=== PATIENT | female | born 2000 | race Caucasian/White ===

== ENCOUNTER 2024-06-24 20:04 | Emergency (ER) | payer MEDICAID, SELFPAY ==
[2024-06-24] VITALS (16 sets, daily range): BP systolic 94–132; BP diastolic 54–90; PULSE 53–93; RESP 10–16; TEMP 36.7–36.9; O2SAT 94–100; BMI 33.9
--- NOTE | 2024-06-24 21:11 | EKG12_ITS ---
Test Reason : DYSRHYTHMIA Blood Pressure : */* mmHG Vent. Rate : 71 BPM Atrial Rate : 71 BPM P-R Int : 186 ms QRS Dur : 88 ms QT Int : 400 ms P-R-T Axes : -14 58 8 degrees QTcB Int : 434 ms Normal sinus rhythm with sinus arrhythmia Normal ECG Confirmed by BOUCHRA LINDQUIST, MIGNON ([id number]), editor trade journal DAMIR BRIONES ([id number]) on 06/27/2024 11:02:46 AM Referred By: Confirmed By: MIGNON SHOOK MD
--- NOTE | 2024-06-24 21:11 | CT_ITS ---
PROCEDURE: CT images of the brain were acquired without intravenous contrast. Multiplanar reformats were acquired. COMPARISON: None available. FINDINGS: * ACUTE: No acute infarct or hemorrhage. No mass effect or herniation. * BRAIN PARENCHYMA: Signal intensities are within normal limits for age. * VENTRICLES/EXTRA-AXIAL SPACES: No hydrocephalus or extra-axial fluid collections. * EXTRACRANIAL STRUCTURES: Visualized osseous structures are normal. Soft tissues are normal. CT/STROKE Brain/Head without Cont IMPRESSION: No acute intracranial findings. IMPRESSION: One or more dose reduction techniques were used (e.g., Automated exposure contr ol, adjustment of the mA and/or kV according to patient size, use of iterative reconstruction technique). Reading Location: [facility]
--- NOTE | 2024-06-24 21:12 | CT_ITS ---
PROCEDURE: STROKE CTA HEAD AND NECK W/CON REASON FOR EXAM: NEURO DEFICIT, ACUTE, STROKE SUSPECTED TECHNIQUE: CTA HEAD AND NECK WITH IV CONTRAST AND 3-D CONTRAST: COMPARISON: None. FINDINGS: AORTIC ARCH The aortic arch is normal. There is a common trunk of the innominate and left common carotid arteries. The origins of the arch branch vessels are patent. EXTRACRANIAL CAROTIDS The common carotid, internal carotid and external carotid segments are widely patent throughout the neck. RIGHT ICA Maximum stenosis (NASCET): 0 % LEFT ICA Maximum stenosis (NASCET): 0 % SKULL BASE The petrous, cavernous and supraclinoid segments of the distal internal carotid arteries are patent with normal configuration. The ophthalmic arteries, posterior communicating artery and anterior choroidal artery origins are normal. INTRACRANIAL VASCULATURE Cerebral Arteries: The anterior, middle and posterior cerebral artery distributions are within normal limits. [place]: The A1 and P1 segments are patent. There is a patent anterior communicating artery with normal configuration. There are small patent posterior communicating arteries with normal configuration. Venous Drainage: Unremarkable. VERTEBROBASILAR SYSTEM The proximal subclavian arteries, both vertebral arteries and basilar artery are widely patent. The cerebellar arteries are within normal limits. NONVASCULAR There is no abnormal intracranial enhancement. The ventricles, cisterns, sulci and parenchymal attenuation are normal. Bone windows are unremarkable. CT/STROKE CTA Head AND Neck W/Con IMPRESSION: NORMAL CTA HEAD AND NECK One or more dose reduction techniques were used (e.g., Automated exposure contr ol, adjustment of the mA and/or kV according to patient size, use of iterative reconstruction technique). Reading Location: [facility]
[2024-06-24] MEDS: Metoclopramide 10 MG/2 ML Vial IV (21:19)
[2024-06-24 21:32] LABS: Absolute Lymphocyte Count 3.78 X10^3/uL (0.83-4.51); Absolute Neutrophil Count 6.4 X10^3/uL (2.0-7.7); Basophil# 0.11 X10^3/uL; Eosinophil# 0.32 X10^3/uL; Eosinophils% 2.8 % (0-5); Hematocrit 36.4 % (37-47); Hemoglobin 11.6 g/dL (12.0-15.0); Lymphocyte # 3.78 X10^3/ul (0.83-4.51); Lymphocyte % 33.2 % (19-41); Mean Corp Hgb Conc 31.9 g/dL (32-36); Mean Corpuscular Hgb 26.5 pg (27.0-32.0); Mean Corpuscular Volume 83.1 fL (81-99); Mean Platelet Vol. 10.6 fl (6.2-12.0); Monocyte# 0.72 X10^3/uL; Monocyte% 6.3 % (0-10); NRBC Flagged by Analyzer 0 % (0-5); Neutrophil # 6.43 X10^3/uL (2.7-7.7); Neutrophil % 56.3 % (47-70); Platelet Count 504 K/mm3 (150-450); RBC Distribution Width CV 15.3 % (11.6-14.6); RBC Distribution Width SD 46.5 fl (35.1-43.9); Red Blood Count 4.38 M/mm3 (4.2-5.4); White Blood Count 11.4 K/mm3 (4.4-11.0)
[2024-06-24 21:38] LABS: Prothrombin Time (Protime)PT. 13.4 SECONDS (11.7-14.9)
[2024-06-24 21:43] LABS: Partial Thromboplast Time 28.7 Seconds (24.1-36.2)
[2024-06-24 21:43] LABS: Bedside Glucose 95 mg/dL (74-106)
--- NOTE | 2024-06-24 21:50 | RAD_ITS ---
PROCEDURE: CHEST 1 VIEW 06/24/2024 REASON FOR EXAM: NEURO DEFICIT, ACUTE, STROKE SUSPECTED TECHNIQUE: Frontal view of the chest. COMPARISON: None. FINDINGS: The heart size is normal. The lungs are clear. The bones are unremarkable. RAD/Chest 1 View IMPRESSION: Negative Chest. Reading Location: [id number]
[2024-06-24 22:03] LABS: Troponin T High Sensitivity < 6 ng/L (<=14)
[2024-06-24 22:06] LABS: Anion Gap 16 (5-15); BUN 5 mg/dL (4-19); BUN/Creat Ratio 5.9 RATIO (10-20); Calcium,Total 9.6 mg/dL (7.6-11.0); Carbon Dioxide 20.5 mmol/L (21.0-32.0); Chloride 107 mmol/L (98-108); Creatinine, Serum 0.91 mg/dL (0.70-1.20); EST Glomerular Filtration Rate 90 (>60); Estimated Creatinine Clearance 110.88 ml/min (50-250); Glucose 95 mg/dL (70-99); Potassium 4.1 mmol/L (3.3-5.1); Sodium Level 144 mmol/L (133-145)
[2024-06-24] MEDS: LORazepam 1 MG Tablet PO (23:32)
--- NOTE | 2024-06-24 23:49 | EX.ED.DYSGE1 ---
HPI History of Present Illness Chief Complaint: Numb/Ting Narrative Narrative: Patient is a 23-year-old female past no known significant past medical history who presented to the emerged part with concern of right sided numbness and tingling. Patient states that her symptoms started around 230 this afternoon she states that this was coming and going. States that she also noted that she had some increased breathing and notes that she thought this was anxiety related. Patient noted that her grandmother had stroke starting at the age of 20 therefore she was concerned and came here for further evaluation management. PFSH PFS Medical History no medical history Allergy/AdvReac Type Severity Reaction Status Date / Time No Known Allergies Allergy Verified 06/24/24 20:06 Social History Smoking Status: Former smoker ROS ROS ED ROS Narrative Constitutional: Complains of mild headache but states that this pain is less than her typical migraine headaches, denies dizziness or lightheadedness Eyes: Denies change in vision double vision blurry vision Cardiovascular: Denies chest pain or palpitations Respiratory: Denies coughing wheezing shortness of breath Abdomen: Denies abdominal pain nausea vomit diarrhea : Denies urinary symptoms Neurological: Complains of numbness and tingling in her right arm and leg as noted above Musculoskeletal: Denies any back pain Skin: Denies rashes or lesions EXAM Physical Exam Narrative Exam Narrative: General: Patient was lying in bed rest comfortably did not appear to be in acute distress Head: Atraumatic, normocephalic Eyes: PERRL bilaterally, EOMI bilateral, no conjunctival injection noted Neck: Soft, supple, trachea midline Cardiovascular: Regular in rhythm no murmurs gallops rubs noted Respiratory: Clear to auscultation bilaterally Abdomen: Soft, nondistended, nontender to palpation Extremities: +5/5 strength noted in the bilateral upper and lower extremities, radial pulse +2/4 in the bilateral extremities, no pedal edema on exam Neurological: Patient follow commands and that she was at [facility] year is 2024. NIH 1 GCS 15. Patient notes that she has decreased sensation in her right arm and her right thigh however below her knee on the right side is normal Skin: Warm, dry, intact no rashes or lesions noted Const Vital Signs: 06/24/24 20:06 06/24/24 21:11 06/24/24 21:11 Temperature 98.1 F Temperature Source Oral Pulse Rate 82 71 Respiratory Rate 16 15 Blood Pressure 132/87 H 124/80 H Blood Pressure Mean 102 94 Pulse Ox 99 100 Oxygen Delivery Method Room Air Room Air Room Air 06/24/24 21:14 06/24/24 21:15 06/24/24 21:30 Temperature Temperature Source Pulse Rate 67 69 69 Respiratory Rate 12 15 10 L Blood Pressure 124/80 H 123/73 H Blood Pressure Mean 93 86 Pulse Ox 97 94 97 Oxygen Delivery Method 06/24/24 21:45 06/24/24 21:53 06/24/24 22:00 Temperature 98.5 F Temperature Source Oral Pulse Rate 82 68 Respiratory Rate 12 16 Blood Pressure 122/84 H 122/84 H Blood Pressure Mean 96 96 Pulse Ox 94 97 Oxygen Delivery Method Room Air 06/24/24 22:00 06/24/24 22:15 06/24/24 22:23 Temperature 98.5 F Temperature Source Oral Pulse Rate 82 53 L 62 Respiratory Rate 14 12 14 Blood Pressure 94/54 L 112/74 113/57 L Blood Pressure Mean 65 86 75 Pulse Ox 95 97 Oxygen Delivery Method Room Air 06/24/24 22:30 06/24/24 22:48 06/24/24 23:00 Temperature Temperature Source Pulse Rate 55 L 93 71 Respiratory Rate 13 15 13 Blood Pressure 113/57 L 129/78 H Blood Pressure Mean 72 95 Pulse Ox 96 97 Oxygen Delivery Method Room Air 06/24/24 23:00 06/24/24 23:15 06/24/24 23:30 Temperature Temperature Source Pulse Rate 75 78 68 Respiratory Rate 10 L 13 14 Blood Pressure 130/90 H 129/78 H Blood Pressure Mean 101 93 Pulse Ox 95 99 Oxygen Delivery Method 06/24/24 23:45 06/25/24 00:00 06/25/24 00:00 Temperature Temperature Source Pulse Rate 65 62 69 Respiratory Rate 13 15 10 L Blood Pressure 131/83 H 102/65 120/86 H Blood Pressure Mean 94 77 98 Pulse Ox 96 99 Oxygen Delivery Method Room Air 06/25/24 00:15 06/25/24 00:30 06/25/24 00:30 Temperature Temperature Source Pulse Rate 66 63 63 Respiratory Rate 13 17 17 Blood Pressure 108/67 102/65 102/65 Blood Pressure Mean 80 75 75 Pulse Ox 97 96 96 Oxygen Delivery Method MDM MDM MDM Narrative Medical decision making narrative: Patient is a 23-year-old female who presented to the emerged part with a chief complaint of right arm and leg numbness and tingling. On the differential diagnose includes Melamin to ischemic stroke, large vessel occlusion, anxiety. Once workup is obtained reviewed she will be reevaluated. Patient is not a tenecteplase candidate as her symptoms were more than 4 and half hours ago. Patient CBC reviewed showed a white blood count 11,000, hemoglobin 1.6, plate count was noted be 504. Patient INR normal at 1, PT of 13.4. Patient sodium 144, potassium of 4.1, creatinine normal at 0.9. Patient troponin was less than 6, glucose was noted be 95. Patient chest x-ray reviewed by myself by radiology showed no acute cardiopulmonary processes. Patient CT head and brain without contrast showed no acute intracranial findings and CTA head and neck showed no acute findings. Patient's EKG reviewed and showed sinus rhythm with a rate of 71 bpm. Did discuss results with on-call neurologist at [facility] Dr. Wharton who is recommending admission for MRI. I discussed this results with the patient and the plan and the patient states that she needs to go home at this point time. I advised her that we cannot fully rule out stroke without MRI and patient verbalized understanding and said she needs to go as her son is in car with significant other waiting to go. I advised her that I will have her sign out AMA as it is neurology's recommendation for admission. I advised her that without the MRI we could potentially miss a stroke that could lead to worsening symptoms even possibly . She verbalized understanding of this. After all this discussion my suspicion for stroke is low as she has right arm numbness and tingling and right proximal leg however she has no symptoms below her knee this is less likely to be stroke. Patient was advised to follow-up with primary care physician outpatient setting she was referred to neurology as well. She is encouraged return to her symptoms and concerns. She is agreeable to plan all question concerns answered bedside. Lab Data Labs: Laboratory Results - last 24 hr 06/24/24 06/24/24 20:52 21:21 WBC 11.4 H RBC 4.38 Hgb 11.6 L Hct 36.4 L MCV 83.1 MCH 26.5 L MCHC 31.9 L RDW Std Deviation 46.5 H RDW Coeff of Leyla 15.3 H Plt Count 504 H MPV 10.6 Immature Gran % (Auto) 0.400 Neut % (Auto) 56.3 Lymph % (Auto) 33.2 [place] % (Auto) 6.3 Eos % (Auto) 2.8 Baso % (Auto) 1.0 Absolute Neuts (auto) 6.4 Absolute Lymphs (auto) 3.78 Nucleated RBC % 0 PT 13.4 INR 1.0 APTT 28.7 Sodium 144 Potassium 4.1 Chloride 107 Carbon Dioxide 20.5 L Anion Gap 16 H BUN 5 Creatinine 0.91 Estim Creat Clear Calc 110.88 Est GFR (MDRD) Non-Af 90 BUN/Creatinine Ratio 5.9 L Glucose 95 Calcium 9.6 Troponin T High Sens < 6 POC Glucose 95 Radiography Diagnostic Testing: Clinical Impression(s) from Imaging Studies Brain CT 06/24/24 21:11 IMPRESSION: No acute intracranial findings. IMPRESSION: One or more dose reduction techniques were used (e.g., Automated exposure control, adjustment of the mA and/or kV according to patient size, use of iterative reconstruction technique). Reading Location: [facility] Head/Neck CTA 06/24/24 21:12 IMPRESSION: NORMAL CTA HEAD AND NECK One or more dose reduction techniques were used (e.g., Automated exposure control, adjustment of the mA and/or kV according to patient size, use of iterative reconstruction technique). Reading Location: [facility] Chest X-Ray 06/24/24 21:50 IMPRESSION: Negative Chest. Reading Location: [id number] Discharge Plan Triage Chief Complaint: Numb/Ting ED Provider: Zheng Greenwood Dx/Rx/DC Orders Clinical Impression: Numbness and tingling of right arm and leg Primary Care Provider: Care Physician,No Primary Referrals: Care Physician,No Primary [Primary Care Provider] - Haley Singleton DO [Non-Staff] - Malini Ji, FITNESS SERVICES MANAGER-C [[facility]] - Activity Restrictions/Additional Instructions: Follow-up with the physicians that you referred to. Return with worsening symptoms and concerns. Your CT of head without contrast was normal and your CT scan of your head with the contrast was normal as well. Print Language: Georgian Disposition Disposition: Against Medical Advice
[2024-06-25] VITALS: BP 102/65; BP 120/86; PULSE 62; PULSE 69; RESP 10; RESP 15; O2SAT 96; O2SAT 99
[2024-06-25 00:15] VITALS: BP 108/67; PULSE 66; RESP 13; O2SAT 97
[2024-06-25 00:30] VITALS: BP 102/65; PULSE 63; RESP 17; O2SAT 96
[2024-06-25 01:03] VITALS: BP 123/74; PULSE 73; RESP 18; TEMP 36.4; O2SAT 98
--- NOTE | 2024-06-25 01:34 | ED.RN ---
This RN educated the patient on stroke s/s, and AMA forms
== END 2024-06-25 01:30 | disposition left against medical advice (07) ==
PROVIDERS: Emergency Provider Emergency Medicine; Visit Provider Emergency Medicine
DX: R20.0 Anesthesia of skin (principal); R20.2 Paresthesia of skin; F41.9 Anxiety disorder, unspecified; R51.9 Headache, unspecified; Z87.891 Personal history of nicotine dependence; Z53.29 Procedure and treatment not carried out because of patient's decision for other reasons
CPT/HCPCS: 70450; 70496; 70498; 71045; 80048; 82962; 84484; 85025; 85610; 85730; 93005; 96374; 99284; Q9967; A4216